=== PATIENT | male | born 1980 | race Caucasian/White ===

== ENCOUNTER 2019-09-20 23:40 | Emergency (ER) | payer BC ==
[2019-09-20] MEDS ORDERED: cefTRIAXone\\ROCEPHIN 1 GM VIAL ONE (23:55)
[2019-09-20] MEDS ORDERED: Azithromycin 250 MG TAB ONE (23:55)
[2019-09-21 00:07] LABS: Bilirubin Negative (Negative); Blood, Urine Moderate (Negative); Clarity Cloudy (Clear); Glucose, Urine (Dipstick) Negative (Negative); Leukocyte Moderate (Negative); Nitrite Negative (Negative); Protein, Urine (Dipstick) Negative (Neg-Trace)
[2019-09-21 00:08] LABS: Bacteria/HPF Rare-Few HPF (None Seen); Squamous Epithelial 0-3 HPF (0-3); WBC/HPF Greater Than 50 HPF (0-3)
[2019-09-23 00:45] LABS: Chlam.trachomatis by PCR,Urine Not Detected (NotDetected)
== END 2019-09-21 00:12 | disposition home or self-care (01) ==
LOC: BURERS 23:40
DX: N34.2 Other urethritis (principal); F32.9 Major depressive disorder, single episode, unspecified; F17.210 Nicotine dependence, cigarettes, uncomplicated
CPT/HCPCS: 81003; 81015; 87086; 87491; 87591; 96372; 99283; J0696